=== PATIENT | female | born 1955 | race Caucasian/White ===

== ENCOUNTER → 2017-06-15 | Outpatient (CLI) | payer BC | LOC: LAB 09:19 | DX: I71.2 Thoracic aortic aneurysm, without rupture (principal) | CPT/HCPCS: 36415; 82565; 84520 ==

== ENCOUNTER → 2017-06-16 | Outpatient (CLI) | payer BC | LOC: KOH-I 06-15 09:00 → CT 06-15 09:00 → KOH-I 08:48 | DX: I71.2 Thoracic aortic aneurysm, without rupture (principal) | CPT/HCPCS: 71260; Q9962 ==

== ENCOUNTER → 2021-11-05 | Outpatient (CLI) | payer MEDICARE, BC ==
[~2021-11-05] MED LIST: LOPRESSOR 25 MG25 MG PO; SINGULAIR10 MG PO; ZANTAC150 MG PO; ZYLOPRIM 100 M100 MG PO
== END ==
LOC: ECHO 11-03 09:00 → US 09:30
DX: R01.1 Cardiac murmur, unspecified (principal); K76.0 Fatty (change of) liver, not elsewhere classified; Z90.49 Acquired absence of other specified parts of digestive tract; I08.0 Rheumatic disorders of both mitral and aortic valves
CPT/HCPCS: ECHO; 76700; 93306